=== PATIENT | female | born 1945 | race Caucasian/White ===

== ENCOUNTER → 2016-08-14 | Day surgery (SDC) | payer MEDICARE, OTHER ==
[2012-08-31 22:11] VITALS: BP 126/63
[~2016-08-14] MED LIST: BYDUREON2 MG; CYMBALTA 60MG60 MG; GABAPENTIN300 MG; GLIMEPIRIDE2 MG; HYDROXYCHLOROQ200 MG; LEVAQUIN 5500 MG/TA1 PO; LISINOPRIL2.5 MG; MELOXICAM15 MG; OMEPRAZOLE20 MG; SPIRIVA18 MCG; SYNTHROID0.125 MG; ULTRAM 50MG TAB50 MG
== END ==
LOC: MSO 08:29
DX: Z12.11 Encounter for screening for malignant neoplasm of colon (principal); K57.30 Diverticulosis of large intestine without perforation or abscess without bleeding; K21.9 Gastro-esophageal reflux disease without esophagitis; Z86.010 Personal history of colon polyps; I10 Essential (primary) hypertension
CPT/HCPCS: 00810; J7030

== ENCOUNTER → 2016-08-23 | Outpatient (CLI) | payer MEDICARE, OTHER ==
[2012-08-31 22:11] VITALS: BP 126/63
== END ==
LOC: MAMMO 13:05
DX: Z12.31 Encounter for screening mammogram for malignant neoplasm of breast (principal)
CPT/HCPCS: G0202

== ENCOUNTER → 2017-11-28 | Outpatient (CLI) | payer MEDICARE, OTHER ==
[2012-08-31 22:11] VITALS: BP 126/63
== END ==
LOC: MAMMO 11:30
DX: Z12.31 Encounter for screening mammogram for malignant neoplasm of breast (principal)

== ENCOUNTER → 2018-08-28 | Day surgery (SDC) | payer MEDICARE, OTHER ==
[2012-08-31 22:11] VITALS: BP 126/63
== END ==
LOC: MSO 07:05
DX: H25.812 Combined forms of age-related cataract, left eye (principal); M06.9 Rheumatoid arthritis, unspecified; J45.909 Unspecified asthma, uncomplicated; E11.9 Type 2 diabetes mellitus without complications; I10 Essential (primary) hypertension; M79.7 Fibromyalgia; Z96.653 Presence of artificial knee joint, bilateral; Z79.82 Long term (current) use of aspirin; Z79.51 Long term (current) use of inhaled steroids; Z79.84 Long term (current) use of oral hypoglycemic drugs; Z88.8 Allergy status to other drugs, medicaments and biological substances; Z88.2 Allergy status to sulfonamides; Z88.1 Allergy status to other antibiotic agents; K21.9 Gastro-esophageal reflux disease without esophagitis
CPT/HCPCS: 00142; J0171; J2250; J3010; V2632

== ENCOUNTER 2018-09-09 11:00 | Outpatient (RCR) | payer MEDICARE, OTHER ==
[2012-08-31 22:11] VITALS: BP 126/63
== END 2018-10-14 | disposition still patient (30) ==
LOC: PT
DX: M54.5 Low back pain (principal); G89.29 Other chronic pain

== ENCOUNTER → 2018-11-19 | Outpatient (CLI) | payer MEDICARE, OTHER ==
[2012-08-31 22:11] VITALS: BP 126/63
[2018-11-19 12:37] LABS: BASO # 0.1 (0.02-0.10); EOS # 0.2 (0.04-0.40); EOS % 3.2 % (1.0-5.0); HEMATOCRIT 41.8 % (37.0-47.0); HEMOGLOBIN 13.5 g/dL (12.5-16.0); LYMPH# 1.3 (1.50-4.00); MEAN CELL VOLUME 94 fl (78-100); MEAN CORPUSCULAR HEMOGLOBIN 30 pg (27-31); MEAN CORPUSCULAR HGB CONC 32 g/dL (33-37); MONO # 0.5 (0.20-0.80); NEU # 4.4 (1.40-6.50); PLATELET COUNT 257 K/mm3 (130-400); RED BLOOD COUNT 4.46 M/mm3 (4.10-5.30); RED CELL DISTRIBUTION WIDTH 12.7 % (11.5-14.5); WHITE BLOOD COUNT 6.5 K/mm3 (4.8-10.8)
== END ==
LOC: LAB 12:21
PROVIDERS: Family Medicine
DX: R59.0 Localized enlarged lymph nodes (principal)

== ENCOUNTER → 2019-03-03 | Outpatient (CLI) | payer MEDICARE, OTHER ==
[2012-08-31 22:11] VITALS: BP 126/63
== END ==
LOC: MAMMO 10:28
DX: Z12.31 Encounter for screening mammogram for malignant neoplasm of breast (principal); N64.89 Other specified disorders of breast

== ENCOUNTER → 2019-03-10 | Outpatient (CLI) | payer MEDICARE, OTHER ==
[2012-08-31 22:11] VITALS: BP 126/63
== END ==
LOC: MAMMO 07:25
DX: N64.89 Other specified disorders of breast (principal)

== ENCOUNTER → 2019-04-14 | Day surgery (SDC) | payer MEDICARE, OTHER ==
[2012-08-31 22:11] VITALS: BP 126/63
== END ==
LOC: MSO 04-07 09:23
DX: R19.5 Other fecal abnormalities (principal); K57.90 Diverticulosis of intestine, part unspecified, without perforation or abscess without bleeding; J45.909 Unspecified asthma, uncomplicated; Z87.891 Personal history of nicotine dependence; K21.9 Gastro-esophageal reflux disease without esophagitis; E11.9 Type 2 diabetes mellitus without complications; Z79.4 Long term (current) use of insulin; I10 Essential (primary) hypertension; E03.9 Hypothyroidism, unspecified; Z79.899 Other long term (current) drug therapy; Z79.82 Long term (current) use of aspirin
CPT/HCPCS: 00811; J2704; J7030

== ENCOUNTER → 2021-04-07 | Outpatient (CLI) | payer MEDICARE, OTHER | LOC: RAD 09:31 → MAMMO 10:00 | DX: Z13.820 Encounter for screening for osteoporosis (principal); M85.832 Other specified disorders of bone density and structure, left forearm; M85.852 Other specified disorders of bone density and structure, left thigh ==

== ENCOUNTER → 2021-07-04 | Outpatient (CLI) | payer MEDICARE, OTHER | LOC: RAD 15:06 | DX: M25.551 Pain in right hip (principal); M25.561 Pain in right knee; Z96.651 Presence of right artificial knee joint ==

== ENCOUNTER → 2021-07-07 | Outpatient (CLI) | payer MEDICARE, OTHER | LOC: VAS 08:30 → RAD 08:30 → VAS 08:35 | DX: Z13.6 Encounter for screening for cardiovascular disorders (principal); M79.604 Pain in right leg ==